=== PATIENT | female | born 1990 | race Caucasian/White ===

== ENCOUNTER → 2016-11-26 | Outpatient (CLI) | payer OTHER ==
--- NOTE | 2016-11-26 16:50 | DX ---
Right Knee, Five Views, 3:20 p.m. Clinical History: 26-year-old female who sustained a knee injury one week ago hitting it against a ro ck. ICD-10 Diagnostic Codes: M25.561, R58, and S89.91XA. Comparison Study: None. Findings: Bone mineralization is preserved. On the sunrise view, there is mild lateral patellar trans lation with lateral patellofemoral joint space narrowing and slight lateral patellar tilting. There i s no loose osteochondral body, or convincing evidence of a joint effusion. The distal femur, proximal tibia, and the proximal fibula are intact. There is no evidence of a patellar fracture. Impression: There is lateral patellofemoral joint space narrowing, with slight lateral translation an d lateral tilting. If there is further clinical concern regarding the patient's knee pain, MR imaging could be considere d.
== END ==
LOC: CIMAGING 15:10
PROVIDERS: ATTEND Family Medicine
DX: M25.561 Pain in right knee (principal); R58 Hemorrhage, not elsewhere classified
CPT/HCPCS: 73564-PO